=== PATIENT | male | born 1965 | race Caucasian/White ===

== ENCOUNTER → 2019-11-02 | Outpatient (CLI) | payer BC | END | disposition home or self-care (01) | LOC: CVU 12:11 | PROVIDERS: ATTEND Internal Medicine Cardiovascular Disease | DX: I08.1 Rheumatic disorders of both mitral and tricuspid valves (principal); R06.02 Shortness of breath; R07.89 Other chest pain | CPT/HCPCS: 93306 ==

== ENCOUNTER 2019-11-10 09:27 | Inpatient (IN) | payer BC ==
[~2019-11-10] VITALS: Ht 172.7 cm; Wt 92.5 kg
[2019-11-10] MEDS ORDERED: LIDOCAINE 2%, 20ML ONE (10:24)
[2019-11-10] MEDS ORDERED: FENTANYL PF 100 MCG/2ML ONE (10:24)
[2019-11-10] MEDS ORDERED: MIDAZOLAM 1 MG/ML, 5ML ONE (10:24)
[2019-11-10] MEDS ORDERED: B CO1TAB14 PO (10:40)
[2019-11-10] MEDS ORDERED: ASPI81TA45 PO (10:40)
[2019-11-10] MEDS ORDERED: CHOL10003 PO (10:40)
[2019-11-10] MEDS ORDERED: MULT-658 PO (10:40)
[2019-11-10] MEDS ORDERED: OMEG-13 PO (10:40)
[2019-11-10] MEDS ORDERED: CA C1TAB60 PO (10:40)
[2019-11-10 10:42] LABS: BASOPHILS # (AUTO) 0.06 x10^3/uL (0-0.1); BASOPHILS % (AUTO) 1 % (0-1); EOSINOPHILS # (AUTO) 0.12 x10^3/uL (0-0.4); EOSINOPHILS % (AUTO) 1 % (1-7); LYMPHOCYTES # (AUTO) 3.11 x10^3/uL (1-3.4); LYMPHOCYTES % (AUTO) 32 % (22-44); MD NO; MEAN CORPUSCULAR HEMOGLOBIN 29.9 pg (27.5-34.5); MEAN CORPUSCULAR HGB CONC 32.7 g/dL (33.2-36.2); MEAN CORPUSCULAR VOLUME 91.5 fL (81-97); MEAN PLATELET VOLUME 10.2 fL (7.4-10.4); MONOCYTES # (AUTO) 0.51 x10^3/uL (0.2-0.8); MONOCYTES % (AUTO) 5 % (2-9); NEUTROPHILS # (AUTO) 5.79 x10^3/uL (1.8-6.8); NEUTROPHILS % (AUTO) 60 % (42-75); PLATELET COUNT 211 x10^3/uL (130-400); RED BLOOD COUNT 5.11 x10^6/uL (4.38-5.82); RED CELL DISTRIBUTION WIDTH 12.6 % (9.4-14.8)
[2019-11-10 10:51] LABS: ANION GAP 5 mmol/L (5-15); CALCIUM 9.1 mg/dL (8.5-10.1); CHLORIDE 108 mmol/L (98-107); CREATININE 1.08 mg/dL (0.7-1.3)
[2019-11-10] MEDS: SODIUM CHLORIDE FLUSH 10ML SYR IVF SCH ×2 (11:30→22:31)
[2019-11-10] MEDS ORDERED: INSULIN LISPRO 100 UNITS/ML, PEN SQ-INSULIN SCH (11:30)
[2019-11-10] MEDS ORDERED: CHLORHEXIDINE 15 ML UDC MM PRN (11:30)
[2019-11-10] MEDS ORDERED: METOPROLOL TARTRATE 25 MG TAB PO ONE (11:30)
[2019-11-10] MEDS ORDERED: ACETAMINOPHEN 325 MG TABLET PO PRN (11:30)
[2019-11-10] MEDS ORDERED: MAGNESIUM HYDROXIDE 8%, 30ML UDC PO PRN (11:30)
[2019-11-10 12:02] LABS: BASOPHILS # (AUTO) 0.04 x10^3/uL (0-0.1); BASOPHILS % (AUTO) 0 % (0-1); EOSINOPHILS # (AUTO) 0.11 x10^3/uL (0-0.4); EOSINOPHILS % (AUTO) 1 % (1-7); LYMPHOCYTES # (AUTO) 2.57 x10^3/uL (1-3.4); LYMPHOCYTES % (AUTO) 30 % (22-44); MD NO; MEAN CORPUSCULAR HEMOGLOBIN 30.4 pg (27.5-34.5); MEAN CORPUSCULAR HGB CONC 33.3 g/dL (33.2-36.2); MEAN CORPUSCULAR VOLUME 91.4 fL (81-97); MEAN PLATELET VOLUME 10.1 fL (7.4-10.4); MONOCYTES # (AUTO) 0.47 x10^3/uL (0.2-0.8); MONOCYTES % (AUTO) 6 % (2-9); NEUTROPHILS # (AUTO) 5.35 x10^3/uL (1.8-6.8); NEUTROPHILS % (AUTO) 63 % (42-75); PLATELET COUNT 194 x10^3/uL (130-400); RED BLOOD COUNT 4.85 x10^6/uL (4.38-5.82)
[2019-11-10 12:13] LABS: INTERNATIONAL NORMALIZED RATIO 1.04 (0.93-1.1); PROTHROMBIN TIME 10.7 Seconds (9.6-11.5)
[2019-11-10 12:15] LABS: ALANINE AMINOTRANSFERASE 34 U/L (12-78); ALBUMIN 3.5 g/dL (3.4-5.0); ANION GAP 5 mmol/L (5-15); CALCIUM 8.5 mg/dL (8.5-10.1); CHLORIDE 107 mmol/L (98-107); CREATININE 1.04 mg/dL (0.7-1.3)
[2019-11-10 12:17] LABS: ALKALINE PHOSPHATASE 57 U/L (45-117); BILIRUBIN,TOTAL 0.6 mg/dL (0.2-1.0)
[2019-11-10 13:18] VITALS: BP 142/88
[2019-11-10] MEDS: PLEASE ENTER HEIGHT AND WEIGHT MC SCH ×4 (13:30→21:30)
[2019-11-10 20:16] VITALS: BP 139/87
[2019-11-10 21:08] LABS: MICROSCOPIC NOT IND
[2019-11-10] MEDS: MUPIROCIN OINT 2%, 22GM TP SCH (22:31)
[2019-11-11 03:00] VITALS: BP 126/77
[2019-11-11] MEDS ORDERED: METOPROLOL TARTRATE 25 MG TAB ONE (05:13)
[2019-11-11] MEDS: MUPIROCIN OINT 2%, 22GM TP SCH (05:22)
[2019-11-11] MEDS ORDERED: HEPARIN 1,000 UNITS/ML, 10ML ONE ×2 (06:31→14:54)
[2019-11-11] MEDS ORDERED: PAPAVERINE 30 MG/ML, 2ML ONE ×2 (06:31→14:54)
[2019-11-11] MEDS ORDERED: FENTANYL PF 250 MCG/5ML ONE ×4 (06:48→06:49)
[2019-11-11] MEDS ORDERED: MIDAZOLAM 10MG/2 ML ONE ×4 (06:48→18:57)
[2019-11-11] MEDS ORDERED: AMINOCAPROIC ACID 250 MG/ML, 20ML ONE ×2 (06:49)
[2019-11-11] MEDS ORDERED: PROPOFOL 10 MG/ML, 20ML ONE (06:49)
[2019-11-11] MEDS ORDERED: EPINEPHRINE 1 MG/ML, 1ML ONE (06:49)
[2019-11-11] MEDS ORDERED: ROCURONIUM 10MG/ML,5ML ONE ×3 (06:49→10:11)
[2019-11-11] MEDS ORDERED: PHENYLEPHRINE 10 MG/ML ONE (06:49)
[2019-11-11] MEDS ORDERED: CEFUROXIME 1.5 GM in SODIUM CHLORIDE 0.9% 50 ML IVPB PRN ×4 (07:30)
[2019-11-11] MEDS ORDERED: EPINEPHRINE 5 MG in SODIUM CHLORIDE 0.9% 245 ML IV PRN ×2 (07:30→13:00)
[2019-11-11] MEDS ORDERED: POTASSIUM CHLORIDE 80 MEQ, SODIUM BICARBONATE 8.4% 10 MEQ, MAGNESIUM SULFATE 0.5 GM, LI... IV PRN ×4 (07:30)
[2019-11-11] MEDS ORDERED: ALBUMIN HUMAN 5% 500 ML IV PRN ×4 (07:30)
[2019-11-11] MEDS ORDERED: DEXMEDETOMIDINE 200 MCG in SODIUM CHLORIDE 0.9% 48 ML IV PRN ×4 (07:30→12:53)
[2019-11-11] MEDS ORDERED: MANNITOL PMX 20% 500 ML IVPB PRN ×4 (07:30)
[2019-11-11] MEDS ORDERED: REGULAR INSULIN 100 UNITS in SODIUM CHLORIDE 0.9% 99 ML IV PRN ×5 (07:30→12:53)
[2019-11-11] MEDS ORDERED: VANCOMYCIN 1,200 MG in SODIUM CHLORIDE 0.9% 250 ML IVPB PRN (07:30)
[2019-11-11] MEDS ORDERED: PHENYLEPHRINE 50 MG in SODIUM CHLORIDE 0.9% 245 ML IV PRN ×6 (07:30→20:00)
[2019-11-11] MEDS ORDERED: VANCOMYCIN 1,400 MG in SODIUM CHLORIDE 0.9% 250 ML IV PRN (07:30)
[2019-11-11] MEDS ORDERED: PROTAMINE SULFATE 10 MG/ML, 25ML ONE ×2 (10:44)
[2019-11-11] MEDS ORDERED: CALCIUM CHLORIDE 10%, 10ML SYR ONE (11:52)
[2019-11-11] MEDS ORDERED: MILRINONE 1 MG/ML, 10ML IV ONE (12:07)
[2019-11-11] MEDS ORDERED: SODIUM BICARB 8.4%, 50ML SYRINGE ONE ×3 (12:27→19:15)
[2019-11-11] MEDS ORDERED: VASOPRESSIN 20 UNIT/ML, 1ML ONE (12:43)
[2019-11-11] MEDS ORDERED: NITROGLYCERIN/D5W PMX 250 ML IV PRN (12:53)
[2019-11-11] MEDS ORDERED: DOBUTAMINE 250 MG in SODIUM CHLORIDE 0.9% 230 ML IV PRN (12:53)
[2019-11-11] MEDS ORDERED: VASOPRESSIN 20 UNIT in SODIUM CHLORIDE 0.9% 99 ML IV PRN (12:53)
[2019-11-11] MEDS ORDERED: SODIUM CHLORIDE 0.9% 1,000 ML IV PRN (12:53)
[2019-11-11] MEDS ORDERED: INSULIN REGULAR 100 UNITS/ML, 3ML VIAL IVPush PRN (13:00)
[2019-11-11] MEDS ORDERED: BISACODYL 5 MG EC TABLET PO PRN (13:00)
[2019-11-11] MEDS ORDERED: LACTATED RINGERS 1,000 ML IV PRN (13:00)
[2019-11-11] MEDS ORDERED: MIDAZOLAM 1 MG/ML, 5ML IVPush PRN (13:00)
[2019-11-11] MEDS ORDERED: ACETAMINOPHEN 650 MG SUPP PR PRN (13:00)
[2019-11-11] MEDS: KSCALE TO 4.5 IV SCH ×2 (13:00→19:00)
[2019-11-11] MEDS ORDERED: ONDANSETRON 2MG/ML, 2ML IVPush PRN (13:00)
[2019-11-11] MEDS ORDERED: SODIUM BICARB 8.4%, 50ML SYRINGE IV PRN (13:00)
[2019-11-11] MEDS ORDERED: DEXTROSE 4 GM TAB.CHEW PO PRN (13:00)
[2019-11-11] MEDS ORDERED: DEXTROSE 50%, 50ML SYRINGE IVPush PRN (13:00)
[2019-11-11] MEDS ORDERED: BISACODYL 10 MG SUPP PR PRN (13:00)
[2019-11-11] MEDS ORDERED: GLUCAGON 1 MG IM PRN (13:00)
[2019-11-11] MEDS ORDERED: PROCHLORPERAZINE 5 MG/ML, 2ML IVPush PRN (13:00)
[2019-11-11] MEDS ORDERED: SODIUM BICARBONATE 1 MEQ/ML, 50ML VIAL ONE ×2 (13:04→19:15)
[2019-11-11] MEDS ORDERED: methylPREDNISolone SOD SUCC 125 MG/2 ML ONE (13:05)
[2019-11-11] MEDS ORDERED: LIDOCAINE 1%, 10ML ONE (13:05)
[2019-11-11] MEDS ORDERED: HEPARIN 1,000 UNITS/ML, 30ML ONE ×2 (13:05→19:16)
[2019-11-11] MEDS ORDERED: ALBUMIN HUMAN 25% 50 ML ONE (13:05)
[2019-11-11 13:21] LABS: GLUCOSE BY BLOOD GAS ANALYZER 172 mg/dL (70-110)
[2019-11-11 13:32] LABS: INTERNATIONAL NORMALIZED RATIO 1.28 (0.93-1.1); PROTHROMBIN TIME 13.2 Seconds (9.6-11.5)
[2019-11-11] MEDS ORDERED: POTASSIUM CHLORIDE 40 MEQ in SODIUM CHLORIDE 0.9% 100 ML IV ONE (14:00)
[2019-11-11] MEDS: morphine SULFATE 10 MG/ML, 1ML IVPush PRN ×2 (14:26→23:38)
[2019-11-11] MEDS: INSULIN LISPRO 100 UNITS/ML, PEN SQ-INSULIN SCH ×2 (16:00→21:00)
[2019-11-11] MEDS ORDERED: LIDOCAINE 2%, 20ML ONE (16:18)
[2019-11-11] MEDS ORDERED: CEFUROXIME 1.5 GM in SODIUM CHLORIDE 0.9% 50 ML IVPB SCH (19:30)
[2019-11-11] MEDS ORDERED: PROPOFOL 100 ML IV ONE (19:31)
[2019-11-11 19:47] LABS: INTERNATIONAL NORMALIZED RATIO 1.27 (0.93-1.1); PROTHROMBIN TIME 13.1 Seconds (9.6-11.5)
[2019-11-11] MEDS: PROPOFOL 100 ML IV PRN (19:47)
[2019-11-11] MEDS: SODIUM BICARBONATE 8.4% 75 MEQ in DEXTROSE 5% 1,000 ML IV SCH (19:48)
[2019-11-11 19:53] LABS: ANION GAP 15 mmol/L (5-15); CALCIUM 7.7 mg/dL (8.5-10.1); CHLORIDE 116 mmol/L (98-107); CREATININE 1.54 mg/dL (0.7-1.3)
[2019-11-11 19:54] LABS: MD YES; MEAN CORPUSCULAR HEMOGLOBIN 30.6 pg (27.5-34.5); MEAN CORPUSCULAR HGB CONC 33.1 g/dL (33.2-36.2); MEAN CORPUSCULAR VOLUME 92.4 fL (81-97); MEAN PLATELET VOLUME 10.1 fL (7.4-10.4); PLATELET COUNT 130 x10^3/uL (130-400); RED BLOOD COUNT 3.51 x10^6/uL (4.38-5.82); RED CELL DISTRIBUTION WIDTH 12.8 % (9.4-14.8)
[2019-11-11 19:56] LABS: <PLATELET ESTIMATE> ADEQUATE; <PLT MORPHOLOGY> NORMAL PLT MORPH; <RBC MORPHOLOGY> NORMAL; BAND#(MANUAL) 1.96 x10^3/uL; BANDS%(MANUAL) 9 % (0-7); LYMPH#(MANUAL) 0.44 x10^3/uL (1-3.4); LYMPHS% (MANUAL) 2 % (22-44); MONOS#(MANUAL) 0.44 x10^3/uL (0.3-2.7); MONOS% (MANUAL) 2 % (2-9); SEG#(MANUAL) 18.97 x10^3/uL (1.8-6.8); SEGS% (MANUAL) 87 % (42-75)
[2019-11-11] MEDS ORDERED: POTASSIUM CHLORIDE 30 MEQ in SODIUM CHLORIDE 0.9% 100 ML IV ONE (20:15)
[2019-11-11] MEDS: MAGNESIUM SULFATE 1 GM in SODIUM CHLORIDE 0.9% 100 ML IVPB SCH (20:19)
[2019-11-11] MEDS: SODIUM CHLORIDE FLUSH 10ML SYR IVF SCH (21:00)
[2019-11-11] MEDS: DOCUSATE 100 MG CAPSULE PO SCH (21:00)
[2019-11-11] MEDS: VANCOMYCIN 1,400 MG in SODIUM CHLORIDE 0.9% 250 ML IVPB SCH (22:21)
[2019-11-11] MEDS: MUPIROCIN OINT 2%, 22GM NAS SCH (23:38)
[2019-11-11] MEDS: CEFUROXIME 1.5 GM in SODIUM CHLORIDE 0.9% 50 ML IVPB SCH (23:39)
[2019-11-12] MEDS: PROPOFOL 100 ML IV PRN ×2 (00:07→09:51)
[2019-11-12] MEDS: KSCALE TO 4.5 IV SCH ×2 (00:38→05:36)
[2019-11-12] MEDS: INSULIN LISPRO 100 UNITS/ML, PEN SQ-INSULIN SCH ×4 (00:40→20:59)
[2019-11-12 04:35] LABS: MEAN CORPUSCULAR HEMOGLOBIN 30.1 pg (27.5-34.5); MEAN CORPUSCULAR VOLUME 91.3 fL (81-97); MEAN PLATELET VOLUME 10.8 fL (7.4-10.4); PLATELET COUNT 133 x10^3/uL (130-400); RED BLOOD COUNT 3.47 x10^6/uL (4.38-5.82); RED CELL DISTRIBUTION WIDTH 13.1 % (9.4-14.8)
[2019-11-12 04:42] LABS: ANION GAP 4 mmol/L (5-15); CALCIUM 8.1 mg/dL (8.5-10.1); CHLORIDE 118 mmol/L (98-107); CREATININE 0.95 mg/dL (0.7-1.3)
[2019-11-12 04:43] LABS: ALBUMIN 2.9 g/dL (3.4-5.0)
[2019-11-12 05:56] LABS: BASOPHILS # (AUTO) 0.02 x10^3/uL (0-0.1); BASOPHILS % (AUTO) 0 % (0-1); EOSINOPHILS % (AUTO) 0 % (1-7); LYMPHOCYTES # (AUTO) 0.91 x10^3/uL (1-3.4); LYMPHOCYTES % (AUTO) 4 % (22-44); MD SCAN; MONOCYTES # (AUTO) 1.05 x10^3/uL (0.2-0.8); MONOCYTES % (AUTO) 5 % (2-9); NEUTROPHILS # (AUTO) 19.12 x10^3/uL (1.8-6.8); NEUTROPHILS % (AUTO) 91 % (42-75)
[2019-11-12] MEDS: morphine SULFATE 10 MG/ML, 1ML IVPush PRN ×2 (06:48→11:44)
[2019-11-12] MEDS: METOPROLOL TARTRATE 25 MG TAB PO/NG SCH ×2 (09:00→20:34)
[2019-11-12] MEDS: DOCUSATE 100 MG CAPSULE PO SCH ×2 (09:00→20:58)
[2019-11-12] MEDS: ASPIRIN 81 MG TABLET EC PO SCH (09:00)
[2019-11-12] MEDS: VANCOMYCIN 1,400 MG in SODIUM CHLORIDE 0.9% 250 ML IVPB SCH (09:03)
[2019-11-12] MEDS: SODIUM BICARBONATE 8.4% 75 MEQ in DEXTROSE 5% 1,000 ML IV SCH (09:11)
[2019-11-12] MEDS ORDERED: FENTANYL PF 100 MCG/2ML ONE (09:12)
[2019-11-12] MEDS: CEFUROXIME 1.5 GM in SODIUM CHLORIDE 0.9% 50 ML IVPB SCH (10:30)
[2019-11-12] MEDS: MUPIROCIN OINT 2%, 22GM NAS SCH ×2 (10:54→20:59)
[2019-11-12] MEDS: SODIUM CHLORIDE FLUSH 10ML SYR IVF SCH ×2 (10:55→20:59)
[2019-11-12] MEDS ORDERED: CEFUROXIME 1.5 GM in SODIUM CHLORIDE 0.9% 50 ML IVPB SCH (12:00)
[2019-11-12] MEDS: MAGNESIUM SULFATE 1 GM in SODIUM CHLORIDE 0.9% 100 ML IVPB SCH (13:01)
[2019-11-12] MEDS: OXYcodone IR 5MG TABLET PO PRN ×3 (14:34→21:00)
[2019-11-12] MEDS ORDERED: HYDROcodone/APAP 5/325 TABLET ONE (17:55)
[2019-11-12] MEDS: ACETAMINOPHEN 325 MG TABLET PO PRN (17:56)
[2019-11-12] MEDS: HYDROcodone/APAP 5/325 TABLET PO PRN (17:56)
[2019-11-12] MEDS: CHLORHEXIDINE 15 ML UDC MM SCH (20:57)
[2019-11-12] MEDS: ATORVASTATIN 80 MG TABLET PO SCH (20:58)
[2019-11-13] MEDS: HYDROcodone/APAP 5/325 TABLET PO PRN ×3 (00:16→18:35)
[2019-11-13] MEDS: ACETAMINOPHEN 325 MG TABLET PO PRN ×2 (00:16→22:37)
[2019-11-13 04:52] LABS: ANION GAP 6 mmol/L (5-15); CALCIUM 8.3 mg/dL (8.5-10.1); CHLORIDE 109 mmol/L (98-107); CREATININE 0.77 mg/dL (0.7-1.3)
[2019-11-13 05:00] VITALS: BP 126/65
[2019-11-13 05:53] LABS: MEAN CORPUSCULAR HEMOGLOBIN 30.6 pg (27.5-34.5); MEAN CORPUSCULAR HGB CONC 33.5 g/dL (33.2-36.2); MEAN CORPUSCULAR VOLUME 91.4 fL (81-97); MEAN PLATELET VOLUME 10.2 fL (7.4-10.4); PLATELET COUNT 86 x10^3/uL (130-400); RED BLOOD COUNT 3.29 x10^6/uL (4.38-5.82); RED CELL DISTRIBUTION WIDTH 13.2 % (9.4-14.8)
[2019-11-13 05:57] LABS: BASOPHILS # (AUTO) 0.28 x10^3/uL (0-0.1); BASOPHILS % (AUTO) 1 % (0-1); EOSINOPHILS # (AUTO) 0.01 x10^3/uL (0-0.4); EOSINOPHILS % (AUTO) 0 % (1-7); LYMPHOCYTES % (AUTO) 9 % (22-44); MD SCAN; MONOCYTES # (AUTO) 0.98 x10^3/uL (0.2-0.8); MONOCYTES % (AUTO) 5 % (2-9); NEUTROPHILS # (AUTO) 16.85 x10^3/uL (1.8-6.8); NEUTROPHILS % (AUTO) 85 % (42-75)
[2019-11-13] MEDS: INSULIN LISPRO 100 UNITS/ML, PEN SQ-INSULIN SCH ×4 (07:00→20:47)
[2019-11-13] MEDS: ENOXAPARIN 40 MG/0.4 ML SQ SCH (09:00)
[2019-11-13] MEDS: POTASSIUM CHLORIDE 10 MEQ TABLET.ER PO SCH ×2 (09:12→17:00)
[2019-11-13] MEDS: DOCUSATE 100 MG CAPSULE PO SCH ×2 (09:12→20:44)
[2019-11-13] MEDS: MUPIROCIN OINT 2%, 22GM NAS SCH ×2 (09:13→20:44)
[2019-11-13] MEDS: ASPIRIN 81 MG TABLET EC PO SCH (09:13)
[2019-11-13] MEDS: SODIUM CHLORIDE FLUSH 10ML SYR IVF SCH ×2 (09:13→20:44)
[2019-11-13] MEDS: FUROSEMIDE 20 MG/2 ML IV SCH ×2 (09:13→17:00)
[2019-11-13] MEDS: CHLORHEXIDINE 15 ML UDC MM SCH ×2 (09:13→20:44)
[2019-11-13] MEDS: OXYcodone IR 5MG TABLET PO PRN ×2 (09:15→11:49)
[2019-11-13] MEDS: METOPROLOL TARTRATE 25 MG TAB PO/NG SCH ×2 (11:48→20:44)
[2019-11-13] MEDS: MAGNESIUM SULFATE 1 GM in SODIUM CHLORIDE 0.9% 100 ML IVPB SCH (13:54)
[2019-11-13] MEDS: AMIODARONE 450 MG in DEXTROSE 5% 241 ML IV PRN ×2 (14:45→23:00)
[2019-11-13] MEDS ORDERED: FILTER 0.22 MICRON IV PRN (15:00)
[2019-11-13] MEDS ORDERED: AMIODARONE 150 MG in DEXTROSE 5% 100 ML IV ONE (15:00)
[2019-11-13] MEDS: ATORVASTATIN 80 MG TABLET PO SCH (20:44)
[2019-11-14] MEDS: OXYcodone IR 5MG TABLET PO PRN (03:36)
[2019-11-14 04:46] VITALS: BP 133/81
[2019-11-14 06:26] LABS: MEAN CORPUSCULAR HEMOGLOBIN 30.5 pg (27.5-34.5); MEAN CORPUSCULAR HGB CONC 33.5 g/dL (33.2-36.2); MEAN CORPUSCULAR VOLUME 91.1 fL (81-97); MEAN PLATELET VOLUME 10.7 fL (7.4-10.4); PLATELET COUNT 121 x10^3/uL (130-400); RED BLOOD COUNT 3.52 x10^6/uL (4.38-5.82); RED CELL DISTRIBUTION WIDTH 12.8 % (9.4-14.8)
[2019-11-14 06:29] LABS: ANION GAP 5 mmol/L (5-15); CALCIUM 8.4 mg/dL (8.5-10.1); CHLORIDE 102 mmol/L (98-107); CREATININE 0.71 mg/dL (0.7-1.3)
[2019-11-14] MEDS: INSULIN LISPRO 100 UNITS/ML, PEN SQ-INSULIN SCH ×4 (06:35→20:41)
[2019-11-14 06:54] LABS: BASOPHILS # (AUTO) 0.09 x10^3/uL (0-0.1); BASOPHILS % (AUTO) 1 % (0-1); EOSINOPHILS # (AUTO) 0.14 x10^3/uL (0-0.4); EOSINOPHILS % (AUTO) 1 % (1-7); LYMPHOCYTES # (AUTO) 1.68 x10^3/uL (1-3.4); LYMPHOCYTES % (AUTO) 11 % (22-44); MD SCAN; MONOCYTES # (AUTO) 0.67 x10^3/uL (0.2-0.8); MONOCYTES % (AUTO) 5 % (2-9); NEUTROPHILS # (AUTO) 12.51 x10^3/uL (1.8-6.8); NEUTROPHILS % (AUTO) 83 % (42-75)
[2019-11-14] MEDS: METOPROLOL TARTRATE 25 MG TAB PO/NG SCH ×2 (08:24→20:41)
[2019-11-14] MEDS: FUROSEMIDE 20 MG/2 ML IV SCH ×2 (08:42→17:23)
[2019-11-14] MEDS: MUPIROCIN OINT 2%, 22GM NAS SCH ×2 (08:42→20:41)
[2019-11-14] MEDS: CHLORHEXIDINE 15 ML UDC MM SCH (08:42)
[2019-11-14] MEDS: DOCUSATE 100 MG CAPSULE PO SCH ×2 (08:43→20:40)
[2019-11-14] MEDS: SODIUM CHLORIDE FLUSH 10ML SYR IVF SCH ×2 (08:43→20:41)
[2019-11-14] MEDS: POTASSIUM CHLORIDE 10 MEQ TABLET.ER PO SCH ×2 (08:43→17:23)
[2019-11-14] MEDS: ASPIRIN 81 MG TABLET EC PO SCH (08:43)
[2019-11-14] MEDS: ENOXAPARIN 40 MG/0.4 ML SQ SCH (09:00)
[2019-11-14] MEDS: HYDROcodone/APAP 5/325 TABLET PO PRN ×2 (11:04→18:24)
[2019-11-14] MEDS: CLOPIDOGREL 75 MG TABLET PO SCH (11:04)
[2019-11-14 19:51] VITALS: BP 125/80
[2019-11-14] MEDS: ATORVASTATIN 80 MG TABLET PO SCH (20:41)
[2019-11-15 00:35] VITALS: BP 130/78
[2019-11-15] MEDS: HYDROcodone/APAP 5/325 TABLET PO PRN ×3 (00:54→20:31)
[2019-11-15 06:27] LABS: BASOPHILS # (AUTO) 0.04 x10^3/uL (0-0.1); BASOPHILS % (AUTO) 0 % (0-1); CHLORIDE 107 mmol/L (98-107); EOSINOPHILS # (AUTO) 0.28 x10^3/uL (0-0.4); EOSINOPHILS % (AUTO) 2 % (1-7); LYMPHOCYTES # (AUTO) 1.65 x10^3/uL (1-3.4); LYMPHOCYTES % (AUTO) 13 % (22-44); MD NO; MEAN CORPUSCULAR HEMOGLOBIN 30.1 pg (27.5-34.5); MEAN CORPUSCULAR HGB CONC 33.4 g/dL (33.2-36.2); MEAN CORPUSCULAR VOLUME 90.2 fL (81-97); MEAN PLATELET VOLUME 10.4 fL (7.4-10.4); MONOCYTES # (AUTO) 0.68 x10^3/uL (0.2-0.8); MONOCYTES % (AUTO) 5 % (2-9); NEUTROPHILS # (AUTO) 10.14 x10^3/uL (1.8-6.8); NEUTROPHILS % (AUTO) 79 % (42-75); PLATELET COUNT 176 x10^3/uL (130-400); RED BLOOD COUNT 3.87 x10^6/uL (4.38-5.82); RED CELL DISTRIBUTION WIDTH 12.6 % (9.4-14.8)
[2019-11-15 06:34] LABS: ANION GAP 7 mmol/L (5-15); CALCIUM 8.2 mg/dL (8.5-10.1); CREATININE 0.81 mg/dL (0.7-1.3)
[2019-11-15 06:54] VITALS: BP 122/83
[2019-11-15] MEDS ORDERED: POTASSIUM CHLORIDE 20 MEQ TAB.ER.PRT PO ONE (08:00)
[2019-11-15] MEDS: FUROSEMIDE 20 MG/2 ML IV SCH ×2 (08:25→16:29)
[2019-11-15] MEDS: ENOXAPARIN 40 MG/0.4 ML SQ SCH (08:25)
[2019-11-15] MEDS: SODIUM CHLORIDE FLUSH 10ML SYR IVF SCH (08:26)
[2019-11-15] MEDS: CLOPIDOGREL 75 MG TABLET PO SCH (08:26)
[2019-11-15] MEDS: ASPIRIN 81 MG TABLET EC PO SCH (08:26)
[2019-11-15] MEDS: DOCUSATE 100 MG CAPSULE PO SCH ×2 (08:26→20:31)
[2019-11-15] MEDS: METOPROLOL TARTRATE 25 MG TAB PO/NG SCH ×2 (08:26→20:30)
[2019-11-15] MEDS: MUPIROCIN OINT 2%, 22GM NAS SCH ×2 (08:28→20:30)
[2019-11-15] MEDS: INSULIN LISPRO 100 UNITS/ML, PEN SQ-INSULIN SCH ×2 (08:32→11:56)
[2019-11-15] MEDS: POTASSIUM CHLORIDE 20 MEQ TAB.ER.PRT PO SCH ×2 (09:01→16:28)
[2019-11-15 12:40] VITALS: BP 133/82
[2019-11-15 20:06] VITALS: BP 141/79
[2019-11-15] MEDS: ATORVASTATIN 80 MG TABLET PO SCH (20:30)
[2019-11-16 00:53] VITALS: BP 138/88
[2019-11-16 05:03] LABS: MEAN CORPUSCULAR HEMOGLOBIN 30.6 pg (27.5-34.5); MEAN CORPUSCULAR HGB CONC 33.5 g/dL (33.2-36.2); MEAN CORPUSCULAR VOLUME 91.2 fL (81-97); MEAN PLATELET VOLUME 9.6 fL (7.4-10.4); PLATELET COUNT 204 x10^3/uL (130-400); RED BLOOD COUNT 3.56 x10^6/uL (4.38-5.82)
[2019-11-16 05:18] LABS: ANION GAP 8 mmol/L (5-15); CALCIUM 8.6 mg/dL (8.5-10.1); CHLORIDE 104 mmol/L (98-107)
[2019-11-16 05:20] LABS: CREATININE 0.94 mg/dL (0.7-1.3)
[2019-11-16 05:44] LABS: BASOPHILS # (AUTO) 0.03 x10^3/uL (0-0.1); BASOPHILS % (AUTO) 0 % (0-1); EOSINOPHILS # (AUTO) 0.24 x10^3/uL (0-0.4); EOSINOPHILS % (AUTO) 2 % (1-7); LYMPHOCYTES # (AUTO) 1.84 x10^3/uL (1-3.4); LYMPHOCYTES % (AUTO) 18 % (22-44); MD SCAN; MONOCYTES # (AUTO) 0.86 x10^3/uL (0.2-0.8); MONOCYTES % (AUTO) 8 % (2-9); NEUTROPHILS # (AUTO) 7.33 x10^3/uL (1.8-6.8); NEUTROPHILS % (AUTO) 71 % (42-75)
[2019-11-16 06:29] VITALS: BP 143/85
[2019-11-16] MEDS ORDERED: POTASSIUM CHLORIDE 20 MEQ TAB.ER.PRT PO ONE (07:30)
[2019-11-16] MEDS: POTASSIUM CHLORIDE 20 MEQ TAB.ER.PRT PO SCH ×2 (08:00→16:05)
[2019-11-16] MEDS: METOPROLOL TARTRATE 25 MG TAB PO/NG SCH ×2 (08:56→20:27)
[2019-11-16] MEDS: DOCUSATE 100 MG CAPSULE PO SCH ×2 (08:56→20:27)
[2019-11-16] MEDS: CLOPIDOGREL 75 MG TABLET PO SCH (08:56)
[2019-11-16] MEDS: MUPIROCIN OINT 2%, 22GM NAS SCH (08:56)
[2019-11-16] MEDS: FUROSEMIDE 40 MG TABLET PO SCH (08:56)
[2019-11-16] MEDS: ENOXAPARIN 40 MG/0.4 ML SQ SCH (08:56)
[2019-11-16] MEDS: ASPIRIN 81 MG TABLET EC PO SCH (08:56)
[2019-11-16 12:20] VITALS: BP 102/73
[2019-11-16] MEDS: HYDROcodone/APAP 5/325 TABLET PO PRN (16:05)
[2019-11-16 20:24] VITALS: BP 117/77
[2019-11-16] MEDS: ATORVASTATIN 80 MG TABLET PO SCH (20:27)
[2019-11-17 01:45] VITALS: BP 120/76
[2019-11-17 05:00] LABS: ANION GAP 7 mmol/L (5-15); CALCIUM 8.6 mg/dL (8.5-10.1); CHLORIDE 104 mmol/L (98-107)
[2019-11-17 05:01] LABS: CREATININE 1.02 mg/dL (0.7-1.3)
[2019-11-17 07:52] VITALS: BP 129/79
[2019-11-17] MEDS: ENOXAPARIN 40 MG/0.4 ML SQ SCH (08:26)
[2019-11-17] MEDS: POTASSIUM CHLORIDE 20 MEQ TAB.ER.PRT PO SCH (08:26)
[2019-11-17] MEDS: ASPIRIN 81 MG TABLET EC PO SCH (08:27)
[2019-11-17] MEDS: METOPROLOL TARTRATE 25 MG TAB PO/NG SCH (08:27)
[2019-11-17] MEDS: FUROSEMIDE 40 MG TABLET PO SCH (08:27)
[2019-11-17] MEDS: CLOPIDOGREL 75 MG TABLET PO SCH (08:27)
[2019-11-17] MEDS: DOCUSATE 100 MG CAPSULE PO SCH (08:28)
[2019-11-17] MEDS ORDERED: POTA10TA6 PO (09:43)
[2019-11-17] MEDS ORDERED: METO25TA35 PO/NG (09:43)
[2019-11-17] MEDS ORDERED: CLOP75TA PO (09:43)
[2019-11-17] MEDS ORDERED: ATOR-2 PO (09:43)
[2019-11-17] MEDS ORDERED: FURO-93 PO (09:43)
[2019-11-17] MEDS ORDERED: HYDR-3240 PO (10:47)
== END 2019-11-17 11:46 | disposition home or self-care (01) | DRG 235 ==
LOC: CACL 09:27 → ORIP 11:22 → 5SO 13:06 → CSU 11-11 10:48 → 5SO 11-14 13:30 → DCLOUNGE 11-17 11:26
PROVIDERS: ADMIT Internal Medicine Cardiovascular Disease; ATTEND Internal Medicine Cardiovascular Disease
PROC: 02100Z9 Bypass Coronary Artery, One Artery from Left Internal Mammary, Open Approach (ICD-10-PCS; 2019-11-11)
PROC: 06BQ4ZZ Excision of Left Saphenous Vein, Percutaneous Endoscopic Approach (ICD-10-PCS; 2019-11-11)
PROC: 5A02210 Assistance with Cardiac Output using Balloon Pump, Continuous (ICD-10-PCS; 2019-11-11)
PROC: 5A1221Z Performance of Cardiac Output, Continuous (ICD-10-PCS; 2019-11-11)
PROC: B24BZZ4 Ultrasonography of Heart with Aorta, Transesophageal (ICD-10-PCS; 2019-11-11)
PROC: 021109W Bypass Coronary Artery, Two Arteries from Aorta with Autologous Venous Tissue, Open Approach (ICD-10-PCS; principal; 2019-11-11 07:30)
DX: I25.798 Atherosclerosis of other coronary artery bypass graft(s) with other forms of angina pectoris (principal); I50.43 Acute on chronic combined systolic (congestive) and diastolic (congestive) heart failure; J96.01 Acute respiratory failure with hypoxia; E87.1 Hypo-osmolality and hyponatremia; E87.2 Acidosis; Q25.0 Patent ductus arteriosus; Z20.828 Contact with and (suspected) exposure to other viral communicable diseases; D64.9 Anemia, unspecified; D69.6 Thrombocytopenia, unspecified; E78.00 Pure hypercholesterolemia, unspecified; E78.5 Hyperlipidemia, unspecified; I11.0 Hypertensive heart disease with heart failure; I25.82 Chronic total occlusion of coronary artery; I48.91 Unspecified atrial fibrillation; Z79.02 Long term (current) use of antithrombotics/antiplatelets; Z79.82 Long term (current) use of aspirin; Z82.49 Family history of ischemic heart disease and other diseases of the circulatory system; Z87.891 Personal history of nicotine dependence
CPT/HCPCS: 36415; 36600; 93458; 93459; J3490; S0017; 71045; 71046; 80048; 80053; 81003; 82040; 82330; 82800; 82803; 82810; 82947; 82962; 83036; 83735; 84132; 84295; 85014; 85018; 85025; 85049; 85347; 85610; 85730; 86850; 86900; 86923; 87081; 87635; 93005; 93306; 93312; 93321; 93325; 93356; 93880; 93970; 94002; 94003; 94150; 99156; C1760; C1769; C1894; G0378; J0171; J0697; J1644; J1650; J1815; J2250; J2260; J2704; J2720; J3010; J3370; J3475; J3480; J7060; J7070; P9045; P9047; C1751; J0282; J1940; J2270; J2370; J2440; J2930; J7050; J7120; Q9967